=== PATIENT | female | born 1950 | race African-American/Black ===

== ENCOUNTER → 2020-02-01 | Outpatient (CLI) | payer OTHER ==
--- NOTE | 2020-02-01 14:55 | KCIC ---
EXAM: MRI left shoulder DATE: 02/01/2020 1:15 PM COMPARISON: None INDICATION: Left shoulder pain. Left arm pain for 6 months. TECHNIQUE: Multiplanar, multisequence MRI of the left shoulder was performed without contrast. FINDINGS: Small left shoulder joint effusion. Subacromial-subdeltoid bursal fluid from full-thickness rotator cuff tear described below. AC joint degenerative changes are seen with small inferior projecting osteophytes. Type II acromion. Small inferior glenohumeral joint osteophytes are also seen. There is a full-thickness tear of the anterior fibers of the supraspinatus tendon measuring 1.4 cm in AP dimension with approximately 1.5 cm retraction to the level of the distal acromion. This extends posteriorly as an articular sided tear approximately 1.5 cm. Mild increased signal within the supraspinatus and subscapularis tendon consistent with mild tendinosis. No significant rotator cuff muscle atrophy. Mild increased signal within the intra-articular segment long head biceps tendon consistent with mild tendinosis. Extra articular long head biceps tendon is seen within the bicipital groove. Within the constraints of this arthrographic study. No discrete labral tear is seen. T1 marrow signal is grossly preserved. No evidence for fracture or osteonecrosis. Articular cartilage is grossly preserved IMPRESSION: 1. Full-thickness tear of the anterior supraspinatus tendon with extension posteriorly as a partial-thickness articular sided tear. There is a background of supraspinatus tendinosis. 2. Subscapularis and intra-articular long head biceps tendinosis. 3. AC joint degenerative changes are seen. Electronically signed by: Pancho Crenshaw MD (02/01/2020 2:52 PM) [id number]
== END ==
LOC: KCIC MRI 13:00
PROVIDERS: ATTEND Orthopaedic Surgery
DX: M75.122 Complete rotator cuff tear or rupture of left shoulder, not specified as traumatic (principal); M19.012 Primary osteoarthritis, left shoulder; M25.712 Osteophyte, left shoulder
CPT/HCPCS: 73221

== ENCOUNTER → 2020-02-12 | Outpatient (CLI) | payer OTHER ==
--- NOTE | 2020-02-12 11:36 | KCIC ---
Examination: MRI of the left elbow without contrast HISTORY: History of medial elbow pain for 6 months COMPARISON: None available TECHNIQUE: Multiplanar, multisequence MR imaging of the left elbow was performed without contrast. FINDINGS: The attachment of the triceps tendon to the olecranon process grossly appears intact. There is mild increased signal identified in the common extensor tendon at its attachment to the lateral epicondyle. The attachment of the common flexor tendon to the medial epicondyle grossly appears intact. The ulnar collateral ligament is intact. The radial collateral ligament, lateral ulnar collateral ligament appear intact. Small elbow joint effusion. Small subchondral cystic changes identified in the capitellum. Mild fissuring of cartilage identified in the medial and lateral compartments. The visualized brachialis, biceps tendon attachment grossly appears intact distally. IMPRESSION: 1. Mild increased T2 signal identified in the common extensor tendon at its attachment to the lateral epicondyle could be mild tendinosis or lateral epicondylitis. 2. Small subchondral cystic changes identified in the capitellum likely degenerative cysts. 3. Small elbow joint effusion. Electronically signed by: José Miguel Camp MD (02/12/2020 11:33 AM) [id number]
== END | disposition home or self-care (01) ==
LOC: KCIC MRI 08:33
PROVIDERS: ATTEND Orthopaedic Surgery
DX: M25.422 Effusion, left elbow (principal); M77.02 Medial epicondylitis, left elbow
CPT/HCPCS: 73221